=== PATIENT | female | born 1990 | race Caucasian/White ===

== ENCOUNTER → 2022-05-11 | Outpatient (CLI) | payer OTHER ==
--- NOTE | 2022-05-11 09:44 | CA ---
Transthoracic Echo Report Name: Chantal Holland Age: 31 Gender: F : 1990 Exam Date: 05/11/2022 08:29 Exam Location: [facility] Ht (in): 68 Wt (lb): 124 Ordering Physician: Jim James MD Attending/Referring Phys: [id number], Erika Product Safety Specialist Tonya Jin, RDCS Procedure CPT: Indications: I34.0 NONRHEUMATIC MITRAL (VALVE) INSUFFICIENCY Cardiac Hx: Technical Quality: Good Contrast 1: Total Dose (mL): Contrast 2: Total Dose (mL): MEASUREMENTS (Male / Female) Normal Values 2D ECHO LV Diastolic Diameter PLAX 3.5 cm 4.2 - 5.9 / 3.9 - 5.3 cm LV Systolic Diameter PLAX 2.4 cm IVS Diastolic Thickness 0.9 cm 0.6 - 1.0 / 0.6 - 0.9 cm LVPW Diastolic Thickness 0.7 cm 0.6 - 1.0 / 0.6 - 0.9 cm LV Relative Wall Thickness 0.5 RV Internal Dim ED PLAX 3.0 cm LA Systolic Diameter LX 2.9 cm 3.0 - 4.0 / 2.7 - 3.8 cm LA Volume 26.8 cm??? 18 - 58 / 22 - 52 cm??? M-MODE Aortic Root Diameter MM 3.3 cm MV E Point Septal Separation 0.5 cm AV Cusp Separation MM 2.3 cm DOPPLER AV Peak Velocity 150.0 cm/s AV Peak Gradient 9.0 mmHg MV Area PHT 3.2 cm??? Mitral E Point Velocity 96.0 cm/s Mitral A Point Velocity 80.4 cm/s Mitral E to A Ratio 1.2 MV Deceleration Time 240.2 ms TR Peak Velocity 210.8 cm/s TR Peak Gradient 17.8 mmHg Right Ventricular Systolic Press 22.4 mmHg FINDINGS Left Ventricle Left ventricular ejection fraction is estimated at 55-60 %. Left ventricular wall thickness normal. Right Ventricle Normal right ventricular size and function. Right ventricular systolic pressure within normal limits. Right Atrium Normal right atrial size. Left Atrium Normal left atrial size. No evidence for an atrial septal defect. Mitral Valve Elongation of the anterior mitral valve leaflet. No mitral stenosis, regurgitation or prolapse. Aortic Valve Trileaflet aortic valve. No aortic valve stenosis or regurgitation. Tricuspid Valve Structurally normal tricuspid valve. Trace to mild tricuspid regurgitation. Pulmonic Valve Structurally normal pulmonic valve. No pulmonic regurgitation. Pericardium Normal pericardium. No pericardial effusion. Aorta Normal size aortic root and proximal ascending aorta. CONCLUSIONS Normal left ventricular ejection fraction 55-60% Normal left ventricular thickness No mitral regurgitation Trace to mild tricuspid regurgitation RVSP 22 Previewed by: Dr. Ras Patel DO (Electronically Signed) Final Date: 11 May 2022 09:43
== END | disposition home or self-care (01) ==
LOC: RADECHMAIN 08:19
PROVIDERS: ATTEND Family Medicine
DX: I07.1 Rheumatic tricuspid insufficiency (principal)
CPT/HCPCS: 93306

== ENCOUNTER → 2024-04-26 | Outpatient (CLI) | payer OTHER ==
[2024-04-26 10:38] LABS: BUN/Creat Ratio 19.62 Ratio (12.00-20.00); Blood Urea Nitrogen 15.7 mg/dL (9.0-27.0); Calcium 9.3 mg/dL (8.7-10.3); Carbon Dioxide 24.5 mmol/L (21.6-31.8); Chloride 103 mmol/L (96-109); Glucose 100 mg/dL (70-110); Potassium 4.4 mmol/L (3.5-5.5); Sodium 137 mmol/L (135-145)
[2024-04-26 10:39] LABS: Insulin Level 9.4 mIU/mL (3.0-25.0)
[2024-04-26 14:05] LABS: ACTH 18.3 pg/mL (0.00-45.99)
== END | disposition home or self-care (01) ==
LOC: LABWHC1 07:13
PROVIDERS: ATTEND Family Medicine
DX: E16.1 Other hypoglycemia (principal); R53.1 Weakness; R63.2 Polyphagia
CPT/HCPCS: 36415; 80048; 82024; 83036; 83525; 84146; 84681

== ENCOUNTER → 2024-04-27 | Outpatient (CLI) | payer OTHER ==
--- NOTE | 2024-04-28 22:53 | XR ---
EXAMINATION TYPE: XR lumbar spine 2 or 3V DATE OF EXAM: 04/27/2024 2:28 PM COMPARISON: None. CLINICAL INDICATION: Female, 33 years old with history of R53.1 WEAKNESS, TECHNIQUE: XR lumbar spine 2 or 3V view(s) obtained. FINDINGS: There are 5 lumbar-type vertebral bodies. Pedicles are intact. Disc heights are preserved. Vertebral body heights are preserved. IMPRESSION: 1. Unremarkable three-view lumbar spine [facility], Workstation: [email or web address], 04/28/2024 10:51 PM
== END | disposition home or self-care (01) ==
LOC: RADXRMAIN 14:00
PROVIDERS: ATTEND Family Medicine
DX: R53.1 Weakness (principal)
CPT/HCPCS: 72100

== ENCOUNTER → 2024-05-17 | Outpatient (CLI) | payer OTHER ==
--- NOTE | 2024-05-17 14:11 | MR ---
EXAMINATION TYPE: MR cervical spine wo con DATE OF EXAM: 05/17/2024 12:18 PM COMPARISON: None. CLINICAL INDICATION: Female, 33 years old with history of WEAKNESS R53.1, LUE weakness, hx fall. TECHNIQUE: Multiplanar, multisequence images of the cervical spine were acquired without contrast. FINDINGS: There is mild to moderate intervertebral disc desiccation particularly at C5-C6 and C6-C7 with small posterior disc protrusions at these levels. Disc material at both of these levels abuts the ventral c ord but without significant spinal canal stenosis. Additional scattered mild facet degenerative change. No significant neuroforaminal stenosis. No craniocervical junction abnormality, predental space widening, or prevertebral soft tissue swellin g. Alignment is maintained No suspicious bone marrow replacement. Normal course and signal intensity of the cervical spinal cord. IMPRESSION: 1. Mild to moderate degenerative disc disease C5-C6 and C6-C7 characterized by disc desiccation and s mall posterior disc protrusions. These protrusions abut the ventral cord without cord compression or significant spinal canal stenosis. 2. Additional scattered mild facet arthropathy. No significant neuroforaminal stenosis. [facility], , 05/17/2024 2:08 PM
== END | disposition home or self-care (01) ==
LOC: RADMRIMAIN 11:32
PROVIDERS: ATTEND Family Medicine
DX: M50.222 Other cervical disc displacement at C5-C6 level (principal); M50.322 Other cervical disc degeneration at C5-C6 level; M47.812 Spondylosis without myelopathy or radiculopathy, cervical region
CPT/HCPCS: 72141

== ENCOUNTER → 2024-10-20 | Outpatient (CLI) | payer OTHER ==
[2024-10-20 10:13] LABS: Basophils # (A) 0.07 X 10*3/uL (0.00-0.10); Basophils % (A) 1.7 %; Eosinophils # (A) 0.23 X 10*3/uL (0.04-0.35); Eosinophils % (A) 5.7 %; HCT 39.8 % (37.2-46.3); HGB 13.5 g/dL (12.0-15.0); Lymphocytes # (A) 1.78 X 10*3/uL (0.90-5.00); Lymphocytes % (A) 43.7 %; MCH 31.3 pg (27.0-32.0); MCHC 33.9 g/dL (32.0-37.0); MCV 92.3 FL (80.0-97.0); Mean Platelet Volume 9.1 FL (9.5-12.2); Monocytes # (A) 0.44 X 10*3/uL (0.20-1.00); Monocytes % (A) 10.8 %; NRBC Per 100 WBC 0 X 10*3/uL (0.00-0.01); Neutrophils # (A) 1.54 X 10*3/uL (1.80-7.70); Neutrophils % (A) 37.9 %; Platelet Count 318 X 10*3/uL (140-440); RBC 4.31 X 10*6/uL (4.10-5.20); WBC 4.07 X 10*3/uL (4.50-10.00)
[2024-10-20 10:50] LABS: Chol/HDL Ratio 2.83 Ratio
[2024-10-20 10:51] LABS: ALT 12 U/L (8-44); AST 15 U/L (13-35); Albumin 4.2 g/dL (3.8-4.9); Albumin/Globulin Ratio 1.62 Ratio (1.60-3.17); Alkaline Phosphatase 40 U/L (41-126); BUN/Creat Ratio 20.29 Ratio (12.00-20.00); Blood Urea Nitrogen 14.2 mg/dL (9.0-27.0); Calcium 9.4 mg/dL (8.7-10.3); Carbon Dioxide 22.1 mmol/L (21.6-31.8); Chloride 103 mmol/L (96-109); Globulin 2.6 g/dL (1.6-3.3); Glucose 92 mg/dL (70-110); LDL Cholesterol,Calculated 102.6 mg/dL (0.0-131.0); Potassium 4.3 mmol/L (3.5-5.5); Sodium 136 mmol/L (135-145); T4, Free (Free Thyroxine) 1.35 ng/dL (0.80-1.80); Total Bilirubin 0.2 mg/dL (0.3-1.2); Total Protein 6.8 g/dL (6.2-8.2)
[2024-10-20 12:27] LABS: Appearance,Urine Clear (Clear); Bilirubin,Urine Negative (Negative); Blood,Urine Negative (Negative); Color,Urine Yellow (Yellow); Ketones,Urine Negative (Negative); Nitrite,Urine Negative (Negative); PH, Urine 5.5; Specific Gravity,Urine 1.023 (1.001-1.030); Urobilinogen,Urine 0.2 E.U./DL
== END | disposition home or self-care (01) ==
LOC: LABWHC1 07:12
PROVIDERS: ATTEND Family Medicine
DX: Z13.220 Encounter for screening for lipoid disorders (principal); E16.1 Other hypoglycemia; E23.7 Disorder of pituitary gland, unspecified; E55.9 Vitamin D deficiency, unspecified; D51.9 Vitamin B12 deficiency anemia, unspecified; R25.1 Tremor, unspecified; R63.2 Polyphagia; R63.1 Polydipsia
CPT/HCPCS: 36415; 80053; 80061; 81003; 82306; 82533; 82607; 83036; 83735; 84146; 84439; 84443; 85025

== ENCOUNTER → 2024-12-18 | Outpatient (CLI) | payer OTHER ==
--- NOTE | 2024-12-20 08:32 | MR ---
EXAMINATION TYPE: MR pituitary wo/w con DATE OF EXAM: 12/18/2024 8:22 AM COMPARISON: None. 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 CONTRAST: Patient received 6 mL intravenous Gadobutrol gadolinium contrast. Multiplanar MultiSpin echo imaging of the pituitary fossa was performed. Unenhanced followed by cont rast enhanced images are submitted. The unenhanced portion of the study fails to demonstrate evidence for hyperintense pituitary lesion. The pituitary gland is of normal size and measures 1.1 x 0.85 cm. Following contrast administration there is small filling defect noted posteriorly and slightly to the right of midline as well as an a dditional filling defect posteriorly and to the left of midline measuring Pituitary 4 mm. 2 microade nomas are difficult to exclude. No evidence for macroadenoma. Stalk is midline. Suprasellar cistern is unremarkable without evidence for mass. Optic chiasm has a normal appearance. Cavernous sinus in cluding the carotid vessels appear to be within normal limits. IMPRESSION: 1. Suspect evidence of 2 pituitary microadenomas. Correlate clinically. [facility], , 12/20/2024 8:30 AM
== END | disposition home or self-care (01) ==
LOC: RADMRIMAIN 07:20
PROVIDERS: ATTEND Family Medicine
DX: E23.7 Disorder of pituitary gland, unspecified (principal)
CPT/HCPCS: 70553; A9585